=== PATIENT | female | born 1950 | race Caucasian/White ===

== ENCOUNTER 2018-02-11 20:47 | Emergency (ER) | payer MEDICARE, BC ==
[~2018-02-11 20:47] MED LIST: ASPI-1471 PO; CALC-852 PO
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
[2018-02-11 21:00] VITALS: BP 125/71
[2018-02-11] MEDS ORDERED: ONDANSETRON 4 MG/2 ML VIAL IVP ONE (21:10)
[2018-02-11] MEDS ORDERED: PROMETHAZINE 25 MG/ML 1 ML AMP IVP ONE (21:10)
[2018-02-11 21:13] LABS: PLATELET COUNT, AUTOMATED 179 K/uL (150-450)
[2018-02-11] MEDS ORDERED: AMOX-559 PO (21:15)
[2018-02-11] MEDS ORDERED: ONDA4TAB97 PO (21:15)
[2018-02-11 21:19] LABS: INR 1.02
[2018-02-11] MEDS ORDERED: NS(*) 0.9% 1000 ML BAG 1,000 ML IV ONE (21:25)
--- NOTE | 2018-02-11 21:25 | EKG ---
FACILITY: [facility] - [place] PATIENT NAME: CLOTILDE MATHUR : [id number] MR: [id number] V: [id number] EXAM DATE: ORDERING PHYSICIAN: CLAU GRACIA TECHNOLOGIST: SAEED Test Reason : SYNCOPE Blood Pressure : / mmHG Vent. Rate : 083 BPM Atrial Rate : 083 BPM P-R Int : 140 ms QRS Dur : 078 ms QT Int : 364 ms P-R-T Axes : 057 080 056 degrees QTc Int : 427 ms Sinus rhythm Nonspecific ST-T findings No previous ECGs available Confirmed by BROOKS ELLIS ([id number] on 02/12/2018 5:50:06 AM Referred By: BASIL Confirmed By:BROOKS ELLIS
[2018-02-11] MEDS ORDERED: PROM-110 PO (22:36)
[2018-02-11] MEDS ORDERED: PROMETHAZINE HCL 25 MG TAB TH 2 TAB/BOTTLE PO ONE (22:55)
== END 2018-02-11 23:24 | disposition home or self-care (01) ==
LOC: ER 21:03
DX: S06.0X0D Concussion without loss of consciousness, subsequent encounter (principal); R11.10 Vomiting, unspecified; S01.01XD Laceration without foreign body of scalp, subsequent encounter; R55 Syncope and collapse
CPT/HCPCS: 81001; 82150; 83605; 83690; 84484; 85025; 85610; 85730; 93005; 96361; 96374; 96375; 99284; J2405; J2550; J7030; 82040; 82247; 82310; 82374; 82435; 82565; 82947; 84075; 84132; 84155; 84295; 84450; 84460; 84520

== ENCOUNTER → 2018-05-09 | Outpatient (CLI) | payer MEDICARE, BC ==
[~2018-05-09] MED LIST changes: +AMOX-559 PO; +ONDA4TAB97 PO; +PROM-110 PO
--- NOTE | 2018-05-09 16:35 | RADIOLOGY IMAGING REPORT ---
FACILITY: [facility] - [place] PATIENT NAME: CLOTILDE MATHUR : [id number] MR: [id number] V: [id number] EXAM DATE: [id number] ORDERING PHYSICIAN: ALEXANDRU MEDINA TECHNOLOGIST: Nena Warren PROCEDURE:BILATERAL DIGITAL SCREENING MAMMOGRAM WITH CAD ASSISTED INTERPRETATION & 3D TOMOSYNTHESIS COMPARISON:Prior mammograms 06/30/2015. INDICATIONS:screening FINDINGS: Breast tissue demonstrates scattered fibroglandular tissue elements. There is no suspicious mass, calcification, or architectural distortion. DIAGNOSTIC CATEGORY 1--NEGATIVE. RECOMMENDATIONS: ROUTINE MAMMOGRAM AND CLINICAL EVALUATION. IMPRESSION: BIRADS 1: Negative. No mammographic evidence for malignancy. Dictated by: Kt Frias M.D. on 05/09/2018 at 15:47 Transcribed by: SAYDA on 05/09/2018 at 15:52 Approved by: Kt Frias M.D. on 05/09/2018 at 16:35 [facility]
== END ==
LOC: MAMO 01:11
PROVIDERS: ATTEND Obstetrics & Gynecology
DX: Z12.31 Encounter for screening mammogram for malignant neoplasm of breast (principal)
CPT/HCPCS: 77063; 77067